=== PATIENT | male | born 1975 | race Caucasian/White ===

== ENCOUNTER 2019-10-18 16:41 | Emergency (ER) | payer SELFPAY ==
[~2019-10-18] VITALS: Ht 182.9 cm; Wt 90.7 kg
[2019-10-18 17:11] VITALS: BP_SYST 138
[2019-10-18] MEDS ORDERED: KETOROLAC TROMETHAMINE 60 MG/2 ML VIAL IM ONE (18:15)
[2019-10-18] MEDS ORDERED: cefTRIAXone 1 GM in LIDOCAINE 1%, 20 ML MDV 2.1 ML IM ONE (18:15)
[2019-10-18 19:20] VITALS: BP_SYST 128
== END 2019-10-18 19:20 | disposition home or self-care (01) ==
LOC: SED 16:41
DX: K08.89 Other specified disorders of teeth and supporting structures (principal)
CPT/HCPCS: 96372; 99283; J0696; J1885; J2001